=== PATIENT | male | born 1995 | race Caucasian/White ===

== ENCOUNTER 2021-04-28 00:46 | Emergency (ER) | payer OTHER ==
[2021-04-28 01:48] VITALS: BP 132/78; PULSE 64; TEMP 97; BMI 30.8
[2021-04-28] MEDS ORDERED: predniSONE 20 MG TABLET (UD) PO ONE (02:41)
[2021-04-28] MEDS ORDERED: CEPHALEXIN MONOHYDRATE 500 MG CAPSULE (UD) PO ONE (02:42)
[2021-04-28] MEDS ORDERED: LORATADINE 10 MG TABLET PO ONE (02:42)
[2021-04-28] MEDS ORDERED: CLINDAMYCIN HCL 300 MG CAPSULE PO ONE (02:49)
[2021-04-28] MEDS ORDERED: LORATADINE 10 MG TABLET ONE (02:50)
[2021-04-28] MEDS ORDERED: predniSONE 20 MG TABLET (UD) ONE (02:50)
[2021-04-28] MEDS ORDERED: CLINDAMYCIN HCL 150 MG CAPSULE (FP) ONE (03:01)
== END 2021-04-28 03:08 | disposition home or self-care (01) ==
LOC: JER 00:46
DX: T63.441A Toxic effect of venom of bees, accidental (unintentional), initial encounter (principal)
CPT/HCPCS: 99283-25

== ENCOUNTER 2022-05-29 13:27 | Emergency (ER) | payer OTHER ==
[2022-05-29 13:39] VITALS: BP 144/93; PULSE 86; TEMP 98.7; BMI 31.5
[2022-05-29] MEDS ORDERED: METHOCARBAMOL 500 MG TABLET PO ONE (13:42)
[2022-05-29] MEDS ORDERED: LIDOCAINE 5% TOPICAL PATCH TP ONE (13:42)
[2022-05-29] MEDS ORDERED: ACETAMINOPHEN 500 MG TABLET (FP) PO ONE (13:42)
[2022-05-29] MEDS ORDERED: KETOROLAC TROMETHAMINE 30 MG/1 ML VIAL IM ONE (13:42)
[2022-05-29] MEDS ORDERED: METHOCARBAMOL 500 MG TABLET ONE (13:53)
[2022-05-29] MEDS ORDERED: LIDOCAINE 5% TOPICAL PATCH ONE (13:53)
[2022-05-29] MEDS ORDERED: ACETAMINOPHEN 500 MG TABLET (FP) ONE (13:53)
[2022-05-29] MEDS ORDERED: KETOROLAC TROMETHAMINE 30 MG/1 ML VIAL ONE (13:54)
[2022-05-29] MEDS ORDERED: LIDOCAINE PATCH REMOVAL MC SCH (22:00)
== END 2022-05-29 16:17 | disposition home or self-care (01) ==
LOC: FER 13:27
PROC: 3E023GC Introduction of Other Therapeutic Substance into Muscle, Percutaneous Approach (ICD-10-PCS; principal; 2022-05-29)
DX: M54.50 Low back pain, unspecified (principal)
CPT/HCPCS: 72100-TC-FY; 99284-25